=== PATIENT | male | born 1990 | race Two or more races ===

== ENCOUNTER 2022-04-22 08:42 | Emergency (ER) | payer MEDICAID, OTHER ==
[~2022-04-22] VITALS: Ht 190.5 cm; Wt 129.3 kg
[2022-04-22] MEDS ORDERED: ACE3T PO (11:55)
[2022-04-22] MEDS ORDERED: MORPHINE SULFATE INJ 2 MG/ml SYRG IM ONE (12:00)
[2022-04-22] MEDS ORDERED: ONDANSETRON ODT 4 MG TAB PO ONE (12:00)
[2022-04-22 12:01] VITALS: BP 134/62
== END 2022-04-22 12:28 | disposition home or self-care (01) ==
LOC: ER 08:42
DX: M54.16 Radiculopathy, lumbar region (principal)
CPT/HCPCS: 72100; 96372; 99283; J2270; Q0162